=== PATIENT | male | born 1975 | race Caucasian/White ===

== ENCOUNTER 2017-12-21 18:04 | Inpatient (IN) | payer MEDICAID ==
[~2017-12-21] VITALS: Ht 172.7 cm; Wt 49.9 kg
[2017-12-21 18:14] VITALS: BP 136/90
[2017-12-21] MEDS ORDERED: TRAZODONE HCL50 MG PO (18:16)
[2017-12-21] MEDS ORDERED: XANAX1 MG PO (18:16)
[2017-12-21 19:37] LABS: ABSOLUTE LYMPHOCYTES 1.3 thou/uL (0.8-5.3); ABSOLUTE MONOCYTES 0.6 thou/uL (0.0-1.2); ABSOLUTE NEUTROPHILS 4.3 thou/uL (1.6-8.1); BASOPHILS 0.6 %; EOSINOPHILS 0.6 %; HEMATOCRIT 41.2 % (42.0-52.0); HEMOGLOBIN 14.4 gm/dL (14.0-18.0); LYMPHOCYTES 20.4 %; MCHC 34.8 g/dL (28.0-37.0); MCV 94.8 fL (80.0-100.0); MONOCYTES 8.9 %; MPV 7.5 fl. (7.2-11.1); NUCLEATED RBCS 0 /100WBC; PLATELET COUNT* 189 thou/uL (150-400); POLYS 69.5 %; RBC 4.35 mil/uL (4.50-6.00); RDW-CV 14.5 % (10.5-14.5); WBC 6.3 thou/uL (4.0-11.0)
[2017-12-21 19:45] LABS: PROTIME 9.4 Seconds (9.20-11.50)
[2017-12-21 19:46] LABS: CALCIUM 8.6 mg/dL (8.5-10.1); CREATININE 0.7 mg/dL (0.6-1.3); POTASSIUM 3.9 mmol/L (3.5-5.1)
[2017-12-21 19:50] LABS: ALBUMIN 4.3 g/dL (3.4-5.0); MAGNESIUM 1.7 mg/dL (1.8-2.4); TOTAL BILIRUBIN 0.4 mg/dL (<0.1-1.0); TOTAL PROTEIN 7.6 g/dL (6.4-8.2)
[2017-12-21 20:04] LABS: AMP/METHAMP Negative (Negative); BARBITURATES Negative (Negative); BENZODIAZEPINES POSITIVE (Negative); COCAINE Negative (Negative); METHADONE Negative (Negative); OPIATES Negative (Negative); PCP Negative (Negative); THC Negative (Negative)
[2017-12-21 21:43] VITALS: BP 105/55
[2017-12-21 22:00] VITALS: BP 115/72
[2017-12-21 23:00] VITALS: BP 92/52
--- NOTE | 2017-12-21 23:33 | NUR ---
PT. ARRIVED TO ROOM 5 ICU AT 2150, ACCOMPANIED BY GIRLFRIEND. ALERT AND ORIENTED 42 YEAR OLD MALE, ETOH ABUSE. ALCOHOL LEVEL 334 IN ED. PT. STATES HE DRINKS 20-30 BEERS/DAY FOR THE LAST 5 MONTHS. HAS DETOXED BEFORE AND EXPERIENCED SEIZURES. ETOH PROTOCOL IN PLACE, GIRLFRIEND WILL STAY IN ROOM THROUGHOUT NIGHT SHE IS ABLE TO CALM PT. DOWN AND ABLE TO GET HIM TO COOPERATE. CALL LIGHT IN REACH, WILL CONINUE TO MONITOR.
[2017-12-22] VITALS (23 sets, daily range): BP systolic 86–151; BP diastolic 44–90
--- NOTE | 2017-12-22 03:22 | NUR ---
PT. REFUSED 0300 LAB DRAW, TOLD LAB PERSONNEL TO COME BACK LATER IN THE MORNING. REFUSED SECOND IV.
--- NOTE | 2017-12-22 05:27 | NUR ---
PT. HAS BEEN COOPERATIVE THROUGHOUT SHIFT, URINAL TO VOID. SIGN. OTHER HAS REMAINED AT BEDSIDE THROUGHOUT SHIFT. D5NS INFUSING AT 100CC/HR. CIWA 11. ATIVAN GIVEN PER SCHEDULED AND PRN ORDER. HAS REMAINED SINUS RHYTHM/TACHY THROUGHOUT SHIFT. ROOM AIR. BED ALARM ON, WILL CONTINUE TO MONITOR.
--- NOTE | 2017-12-22 07:56 | NUR ---
RECEIVED REPORT. ASSUMED CARE OF PT AT 0730. VSS. CARDIAC MONITORING IN PLACE SR/ST. ASSESSMENT COMPLETED CHARTED. PT IS ALERT AND ORIENTED THIS AM. CIWA COMPLETED CHARTED. PT HAS EXTREME TREMORS THIS AM. PT SEEN BY NEURO. PER PT AND S/O PT UNABLE TO HAVE MRI DUE TO METAL AND FACIAL PIERCINGS. PT DENIES ANY COMPLAITNS OF PAIN OR DISCOMFORT THIS AM. PRN ATIVAN GIVEN. PT'S S/O AT BEDSIDE. BED ALARM ON FOR PT SAFETY. PT INFORMED OF PLAN OF CARE. WILL CONTINUE TO MONTIOR CLOSELY.
--- NOTE | 2017-12-22 09:23 | NUR ---
PT'S FATHER HERE. HE STATES HE WOULD LIKE PT TO GO TO [facility] IN [place] ONCE PT IS DISCHARGED. ASKED FATHER IF HE THOUGHT PT WOULD BE WILLING AND FATHER STATED THAT PT HAS TRIED REHAB IN THE PAST.
--- NOTE | 2017-12-22 09:49 | NUR ---
PT'S PSYCH PHYSICIAN, DR. ERIC CALLED AND SPOKE TO THIS NURSE. DR. ERIC VERIFIED PT'S XANAX DOSE OF 4MG TID. HE ALSO PROVIDED SOME HISTORY FOR PT. SUCH SEVERE ANXIETY, HX OF SI, AND RECENT RECURRENT RELAPSES. DR. ERIC PORVIDED HIS PHONE NUMBER [phone].
--- NOTE | 2017-12-22 10:32 | NUR ---
INTERDISCIPLINARY ROUNDS: PT ADMITTED WITH ETOH ABUSE/INTOXICATION. ATTEMPTED TO MEET WITH PT. HE ASKED THAT CM COME LATER HE WANTS TO SLEEP. PER WARREN UREÑA, PT'S PSYCHIATRIST AND DIRECT CUSTOMER SERVICE REPRESENTATIVE NUMBERS ARE IN THE CHART. WILL ATTEMPT TO SEE LATER
--- NOTE | 2017-12-22 12:01 | NUR ---
PT REFUSING LABS, GLUCOSE CHECKS, AND EEG.
--- NOTE | 2017-12-22 15:30 | NUR ---
1515 ASSUMED CARE OF PATIENT. REPORT FROM NIRANJAN KELLEY
--- NOTE | 2017-12-22 16:35 | NUR ---
MOTHER TO VISIT. PATIENT JUST WANTS TO SLEEP
--- NOTE | 2017-12-22 18:21 | NUR ---
PATIENT WITH SOME PROGRESS TOWARDS GOALS. CIWA SCORES CHARTED. COOPERATIVE BUT REFUSES LABS AND ACCUCHECKS WELL SECOND IV SITE. AGREES WITH PLAN OF CARE. VSS. TOOK SOME OF DINNER TRAY. MOTHER AND FATHER HAVE VISITED.
--- NOTE | 2017-12-22 22:52 | NUR ---
PT AWOKE STATING "WAS SOMEONE IN HERE TYPING AND SINGING? I ALSO HEARD SOME- ONE WALKING BY THE WINDOW, AND I THOUGH I HEARD MY DOG RUNNING AROUND." PT INFORMED NOONE HAD BEEN IN HIS ROOM SINCE 2199. EDUCATION PROVIDED ON HALLUCINATION SYMPTOM OF ETOH WITHDRAWL, VERBALIZED UNDERSTANDING. PT STATED "THAT HAPPENED TO ME BEFORE WHEN I DETOXED BUT NOT SINCE THE , AND THAT'S WHEN I HAD TWO SEIZURES." PT IS ALERT, ORIENTED, AND APPROPRIATE IN INTERACTION BUT APPEARS THOUGH THE HALLUCINATIONS CONFUSED AND UNNERVED HIM. SIDE RAIL PADS IN PLACE FOR SEIZURE PRECAUTIONS AND DOOR LEFT AJAR FOR EASY OBSERVATION. PRN ATIVAN GIVEN ORDERED. CALL LIGHT WITHIN REACH.
[2017-12-23] VITALS (7 sets, daily range): BP systolic 118–145; BP diastolic 74–92
--- NOTE | 2017-12-23 06:08 | NUR ---
PT REQUESTING TO LEAVE AMA AT THIS TIME, STATES "I'M GOING TO GO STAY WITH MY PARENTS FOR A COUPLE DAYS SO I'M NOT AT HOME BY MYSELF. I'VE JUST GOTTA GET WHERE I CAN WALK AROUND AND EAT, I DON'T LIKE THE FOOD HERE. AND I NEED TO BE AROUND MY SUPPORT SYSTEM." PT EDUCATED ON RISKS OF LEAVING AMA AND BENEFITS OF STAYING INPATIENT FOR MONITORING AND MEDICATION MANAGEMENT OF SYMPTOMS, VERBALIZED UNDERSTANDING. PT STATED THAT HE PREFERS TO COMPLETE HIS DETOX AT HOME. AMA RELEASE SIGNED BY PT. PT SPOKE TO HIS FATHER AND STATES THAT HE WILL BE HERE BETWEEN 0730 AND 0800 TO PICK PT UP. PT AGREEABLE TO REMAINING ON LABORATORY WORKER UNTIL HIS FATHER ARRIVES.
[2017-12-23] MEDS ORDERED: PRENATAL PO (07:06)
--- NOTE | 2017-12-23 07:31 | NUR ---
PATIENT IV REMOVED, AMA PAPER PREVIOUSLY SIGNED. PATIENTS FATHER WILL BE HERE SOON. ALL BELONGINGS PACKED AND PATIENT SITTING ON EDGE OF BED WAITING TO GO.
--- NOTE | 2017-12-30 12:17 | CON ---
[address] [address] CONSULTATION Name: ALDA MILLER Room: [address] IN ..#: [id number] Admission: 12/21/17 Attend Phys: Anup Ruano MD Discharge: 12/23/17 Date of : 73 Report #: [id number] THIS REPORT FOR: //name// CC: [facility] physician/PCP Anup Ruano DATE OF SERVICE: 12/22/2017 HISTORY OF PRESENT ILLNESS: This is a 42-year-old male patient who was evaluated by me for seizure. The patient is pretty tremulous and is in alcohol withdrawal. He was not very cooperative and wanted to go back to sleep. He indicated that he was drinking up to 30 beers a day every day for the last 5 months and he stopped drinking alcohol 3 days ago. He had a small generalized tonic-clonic seizure with postictal confusion and he is back to his baseline. He had another alcohol withdrawal seizure in . He never had any treatment and never had any seizures since then. REVIEW OF SYSTEMS: Indicate this patient does have a history of anxiety and depression and he takes medications for that. He did not give much other history because he just wanted to sleep. But he told me his 14-point review of systems was otherwise noncontributory, meaning that he does not have any diabetes, hypertension, etc. PAST MEDICAL HISTORY: Positive for another alcohol withdrawal seizure some time ago. FAMILY HISTORY: Negative for early age stroke. SOCIAL HISTORY: He smokes as well as drink alcohol. PHYSICAL EXAMINATION: Indicates he is alert and responsive, poorly cooperative. He did not cooperate with a cognitive evaluation. He moves all 4 extremities. He does not have any meningeal sign. I tried to do the cranial nerve examination, he did not cooperate much. Cardiac examinations appear noncontributory. No respiratory difficulty, but some rhonchi is present on both sides. His pulses appeared to be palpable. His blood pressure is 116/72, respirations 14, pulse is 81, temperature is 98.8. He did have a CT scan of the head when he was here and that was unremarkable. LABORATORY DATA: Reviewed and his white count is normal. His sodium is trace low at 133. His CT is okay. IMPRESSION: Alcohol withdrawal seizure. RECOMMENDATION: I discussed with the patient his options. I discussed with him that he can go on medication or can stay without it; [place] [address] CONSULTATION Name: ALDA MILLER Room: [address]#: [id number] Admission: 12/21/17 Attend Phys: Anup Ruano MD Discharge: 12/23/17 Date of : 73 Report #: [id number] without it. I told him that he needs to take seizure precautions and I discussed with him those. I discussed with him that he cannot drive for at least 6 months. He understood all those. Subsequently, we tried to do an EEG on this patient, but he refused. In this circumstance, I have limited things to add and please call us if he changes his mind or wants to do some other further workup or if he has any neurological symptoms. Thank you very much for this referral. <ELECTRONICALLY SIGNED> By: Prosper Waters MD 12/30/17 1217 1533 [id number] Waters MD /nt
== END 2017-12-23 07:51 | disposition left against medical advice (07) | DRG 101 ==
LOC: M.ERS 18:04 → M.TBA-ER 20:18 → M.ICU 20:18
PROVIDERS: Emergency Medicine; ADMIT Internal Medicine
DX: R56.9 Unspecified convulsions (principal); F10.239 Alcohol dependence with withdrawal, unspecified; F17.210 Nicotine dependence, cigarettes, uncomplicated; F32.9 Major depressive disorder, single episode, unspecified; F41.8 Other specified anxiety disorders; Y90.9 Presence of alcohol in blood, level not specified; F10.229 Alcohol dependence with intoxication, unspecified; Z88.6 Allergy status to analgesic agent

== ENCOUNTER 2018-07-23 00:02 | Emergency (ER) | payer MEDICAID ==
[~2018-07-23] VITALS: Ht 162.6 cm; Wt 51.3 kg
[~2018-07-23 00:02] MED LIST: PRENATAL PO; TRAZODONE HCL50 MG PO; XANAX1 MG PO
[2018-07-23] MEDS ORDERED: XANAX1 MG PO (00:16)
[2018-07-23 00:47] LABS: URINE BILIRUBIN NEGATIVE (Negative); URINE BLOOD TRACE (Negative); URINE CLARITY CLEAR; URINE COLOR YELLOW; URINE GLUCOSE-RANDOM NEGATIVE (Negative); URINE KETONES 1+ (Negative); URINE LEUKOCYTES-REFLEX NEGATIVE (Negative); URINE NITRITE-REFLEX NEGATIVE (Negative); URINE PROTEIN NEGATIVE (Negative); URINE SPECIFIC GRAVITY <= 1.005 (1.005-1.030); URINE UROBILINOGEN 0.2 E.U./dl (0.2-1.0)
[2018-07-23 00:50] LABS: ABSOLUTE BASOPHILS 0.1 thou/uL (0.0-0.2); ABSOLUTE EOSINOPHILS 0.1 thou/uL (0.0-0.7); ABSOLUTE LYMPHOCYTES 2.7 thou/uL (0.8-5.3); ABSOLUTE MONOCYTES 0.4 thou/uL (0.0-1.2); ABSOLUTE NEUTROPHILS 4.3 thou/uL (1.6-8.1); BASOPHILS 1.3 %; EOSINOPHILS 0.9 %; HEMATOCRIT 45.3 % (42.0-52.0); HEMOGLOBIN 15.9 gm/dL (14.0-18.0); LYMPHOCYTES 35.8 %; MCH 32.9 pg (26.0-34.0); MCV 93.7 fL (80.0-100.0); MONOCYTES 5.7 %; MPV 7.5 fl. (7.2-11.1); NUCLEATED RBCS 0 /100WBC; PLATELET COUNT* 238 thou/uL (150-400); POLYS 56.3 %; RBC 4.84 mil/uL (4.50-6.00); RDW-CV 13.1 % (10.5-14.5); WBC 7.7 thou/uL (4.0-11.0)
[2018-07-23 00:53] LABS: CALCIUM 8.6 mg/dL (8.5-10.1); CREATININE 0.8 mg/dL (0.6-1.3); POTASSIUM 3.4 mmol/L (3.5-5.1)
[2018-07-23 00:56] LABS: APTT 31.5 Seconds (25.0-31.3)
[2018-07-23 01:02] LABS: ALBUMIN 4.1 g/dL (3.4-5.0); TOTAL BILIRUBIN 0.6 mg/dL (<0.1-1.0); TOTAL PROTEIN 7.4 g/dL (6.4-8.2)
[2018-07-23 01:15] LABS: ACETAMINOPHEN < 2 ug/mL (10-30); ALCOHOL 361 mg/dL (<10); SALICYLATE 7.9 mg/dL (2.8-20.0)
[2018-07-23 01:23] VITALS: BP 103/47
[2018-07-23 01:23] LABS: AMP/METHAMP Negative (Negative); BARBITURATES Negative (Negative); BENZODIAZEPINES POSITIVE (Negative); COCAINE Negative (Negative); METHADONE Negative (Negative); OPIATES Negative (Negative); PCP Negative (Negative); THC Negative (Negative)
--- NOTE | 2018-07-24 14:10 | EKG ---
[place] [address] ELECTROCARDIOGRAM REPORT Name: ANGELAALDA Room: [facility]#: [id number] Admission: 07/23/18 Attend Phys: Discharge: 07/23/18 Date of : 73 Report #: [id number] THIS REPORT FOR: //name// [facility] ED Test Date: 2018-07-23 Test Time: 00:39:54 Pat Name: ALDA MILLER Department: Room: Gender: M Enterprise Architect: KULWANT : 1975 Requested By: Garry Alexander Order Number: [id number] MD: Jordin Dial Measurements Intervals [place] Rate: 110 P: 77 LA: 122 QRS: 90 QRSD: 100 T: 15 QT: 322 QTc: 436 Interpretive Statements Sinus tachycardia Borderline right axis deviation Anterior Q waves, possibly due to LVH No previous ECG available for comparison Electronically Signed On 07-24-2018 14:10:47 SLITTER OPERATOR by Jordin Dial [email or web address] <ELECTRONICALLY SIGNED> By: Jordin Dial MD, [facility] 07/24/18 1410 0039 0039 Jordin Dial MD, FACC /EPI
== END 2018-07-23 01:23 | disposition home or self-care (01) ==
LOC: M.ERS 00:02
PROVIDERS: Family Medicine
DX: F10.129 Alcohol abuse with intoxication, unspecified (principal); F17.210 Nicotine dependence, cigarettes, uncomplicated; Z88.5 Allergy status to narcotic agent